=== PATIENT | female | born 1965 | race Caucasian/White ===

== ENCOUNTER → 2017-05-08 | Outpatient (CLI) | payer MEDICARE ==
[2015-04-01 17:12] VITALS: BP 105/64
[~2017-05-08] MED LIST: AMIT10TA PO; ASPI-482 PO; BACL10TA PO; CHLO1CAP PO; CLON1TAB3 PO; DICL75TA PO; DICY20TA3 PO; ESTR1TAB15 PO; LEVO100T5 PO; MECL25TA3 PO; OXYC-323 PO; PROP20TA PO; QUET300T6 PO; RANI150T2 PO; SIMV20TA3 PO; SITA1TAB11 PO; TIZA4TAB PO; TOPI25TA7 PO
--- NOTE | 2017-05-08 15:01 | RAD ---
DATE: 05/08/2017 EXAM: DIGITAL DIAGNOSTIC BILATERAL HISTORY: 6 month follow-up of asymmetry COMPARISON: 10/04/2016, 05/27/2016 05/02/2016 The breast parenchyma shows scattered fibroglandular densities. Breast parenchyma level B. FINDINGS: The fibroglandular densities in the breasts are unchanged. Again noted is a mild asymmetry at the 9:00 location in the right breast. This is unchanged since multiple previous studies. No new or enlarging breast densities are seen. There is a breast biopsy marker in the lateral aspect of the right breast. Scattered benign type calcifications are present. No suspicious microcalcifications have developed. IMPRESSION: Stable right breast asymmetry as described above. Follow-up right mammograms in 6 months and bilateral mammography at one year is suggested BI-RADS CATEGORY: 3 PROBABLY BENIGN FINDING(S)-SHORT INTERVAL FOLLOW-UP SUGGESTED RECOMMENDED FOLLOW-UP: 6M 6 MONTH FOLLOW-UP PQRS compliance statement: Patient information was entered into a reminder system with a target due date for the next mammogram. Mammography is a sensitive method for finding small breast cancers, but it does not detect them all and is not a substitute for careful clinical examination. A negative mammogram does not negate a clinically suspicious finding and should not result in delay in biopsying a clinically suspicious abnormality. "Our facility is accredited by the [employer] Mammography Program."
== END | disposition home or self-care (01) ==
LOC: KCIC MAMMO 14:10
PROVIDERS: ATTEND Family Medicine
DX: R92.8 Other abnormal and inconclusive findings on diagnostic imaging of breast (principal)
CPT/HCPCS: G0204; 77066

== ENCOUNTER → 2017-11-17 | Outpatient (CLI) | payer MEDICARE | END | disposition home or self-care (01) | LOC: KCIC MAMMO 12:50 | DX: R92.8 Other abnormal and inconclusive findings on diagnostic imaging of breast (principal); N64.89 Other specified disorders of breast (principal) | CPT/HCPCS: 77065; G0279 ==

== ENCOUNTER → 2018-04-21 | Outpatient (CLI) | payer MEDICARE ==
[2018-04-21 13:58] LABS: ISTAT CREATININE 0.7 mg/dL (0.6-1.1)
[2018-04-21] MEDS: IOHEXOL 240 MG/ML 50ML VIAL. PO (14:27)
[2018-04-21] MEDS: IOHEXOL 300 MG/ML 100ML VIAL. IV (14:27)
== END | disposition home or self-care (01) ==
LOC: KCIC CT 12:24
DX: A08.8 Other specified intestinal infections (principal); E03.9 Hypothyroidism, unspecified; R10.13 Epigastric pain
CPT/HCPCS: 74177; 82565; Q9966; Q9967

== ENCOUNTER → 2018-05-26 | Outpatient (CLI) | payer MEDICARE | END | disposition home or self-care (01) | LOC: KCIC MAMMO 12:40 | DX: Z12.31 Encounter for screening mammogram for malignant neoplasm of breast (principal); E03.9 Hypothyroidism, unspecified; Z90.710 Acquired absence of both cervix and uterus | CPT/HCPCS: 77063; 77067 ==

== ENCOUNTER → 2018-06-01 | Outpatient (CLI) | payer MEDICARE | END | disposition home or self-care (01) | LOC: KCIC 11:58 | DX: M47.896 Other spondylosis, lumbar region (principal); M48.54XD Collapsed vertebra, not elsewhere classified, thoracic region, subsequent encounter for fracture with routine healing; E03.9 Hypothyroidism, unspecified; Z90.710 Acquired absence of both cervix and uterus | CPT/HCPCS: 72100 ==

== ENCOUNTER → 2019-07-15 | Day surgery (SDC) | payer MEDICARE ==
[~2019-07-15] MED LIST changes: +CANA300T PO; -CLON1TAB3 PO; +CLONAZEPAM1 MG PO; +FLUT9.9S NS; +GLIM2TAB3 PO; +INSU3INS SQ; +IRON1TAB2 PO; +IV RINGERS,LACTATED 1000ML 1,000 ML IV SCH; +LACT1CAP29 PO; +METF10007 PO; +OMEP40CA45 PO; -OXYC-323 PO; +OXYC1TAB15 PO; +PROPOFOL 20 ML IV ONE; -QUET300T6 PO; +QUET300T7 PO; +SIMV20TA18 PO; -SIMV20TA3 PO; -TIZA4TAB PO; +TIZA4TAB2 PO; +VORT20TA PO
--- NOTE | 2019-07-15 11:25 | PREOP HP ---
DATE OF SERVICE: 07/15/2019 DATE OF PROCEDURE: 07/15/2019 REQUESTING PHYSICIAN: Nhung Alberto MD PRIMARY CARE PHYSICIAN: Nhung Alberto MD REASON FOR PROCEDURE: Anemia and nausea. 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 She is to undergo upper endoscopy with APC. ALLERGIES: PENICILLIN AND SULFA WELL LATEX AND ADHESIVE TAPE. PAST MEDICAL HISTORY: 1. Gallbladder problems. 2. Hypercholesterolemia. 3. Hypothyroidism. 4. COPD. 5. Anxiety. 6. Depression. 7. Colon polyps. 8. Anemia. FAMILY MEDICAL HISTORY: Significant for ovarian cancer and esophageal and stomach cancer, but no colorectal cancer. SOCIAL HISTORY: She drinks 7 alcoholic beverages a week. She denies tobacco or IV drug abuse. She is a former smoker. MEDICATIONS: MAR was reviewed. REVIEW OF SYSTEMS: A 13-point review of systems was done. It is positive as per HPI and otherwise negative. PHYSICAL EXAMINATION: VITAL SIGNS: She is afebrile and her vital signs are stable. GENERAL: She is a well-developed, well-nourished female, in no apparent distress. HEENT: Oropharynx is clear. CARDIOVASCULAR: S1, S2. LUNGS: Clear. ABDOMEN: Normoactive bowel sounds, soft, nontender, nondistended. EXTREMITIES: No edema. NEUROLOGIC: Awake, alert and oriented x 3. ASSESSMENT AND PLAN: 1. Anemia. 2. History of gastric antral vascular ectasia. The risks and benefits of the procedure including bleeding, perforation, non-diagnosis and sedation were explained and she has agreed to proceed. JOSHUA PAIGE MD DR: LILLIE/franck JOB#: [id number] / [id number]
[2019-07-15 11:30] VITALS: BP 111/59
--- NOTE | 2019-07-16 15:07 | PATHOLOGY ---
[facility] Accession Number: [id number] . 01 Material submitted: . PART A: small bowel - SMALL BOWEL BIOPSY PART B: stomach - GASTRIC ANTRUM BIOPSY PART C: esophagus - DISTAL ESOPHAGUS BIOPSY. Modifiers: distal . 01 Clinical history: . Gastric antral vascular ectasia . 02 Diagnosis: A. Small bowel, biopsy: - No pathologic diagnosis. . B. Stomach, antrum, biopsy: - Mild chronic inflammation, nonspecific. - No evidence of Helicobacter pylori on immunoperoxidase stain. . C. Esophagus, distal, biopsy: - Tiny fragment of gastric-type columnar epithelium with mild chronic inflammation and focal intestinal metaplasia, findings compatible with Perkins's esophagus. - No evidence of dysplasia. - No squamous epithelium present. . ([facility]:mm; 07/16/2019) [facility] 07/16/2019 1049 Local . 02 Electronically signed: . Cas Cotton MD, Pathologist NPI- [id number] . 01 Gross description: . A. The specimen is received in formalin, labeled "Alexander, Delmy, small bowel BX", are three irregular fragments of sheets soft tissue measuring 0.5 x 0.5 x 0.2 cm in aggregate. Entirely submitted in A1. . B. The specimen is received in formalin, labeled "Alexander, Delmy, gastric antrum", are four irregular fragments of sheets soft tissue measuring 0.6 x 0.4 x 0.2 cm in aggregate. Entirely submitted in B1. . C. The specimen is received in formalin, labeled "Alexander, Delmy, distal esophagus BX", is an irregular of sheets soft tissue measuring 0.4 cm in greatest dimension. Entirely submitted in C1. ([facility]; 07/15/2019) [facility] 07/15/2019 2100 Local . 02 Pathologist provided ICD-10: K29.50, K20.9, K22.70 . 02 CPT . 818619, 468961, 494698, [id number] Specimen Comment: A courtesy copy of this report has been sent to Specimen Comment: [phone], . Specimen Comment: Report sent to / DR SALVADOR Performed at: 01 [facility] [address], [place] [id number] MD John Tan MD Phone: [phone] Performed at: 02 [facility] [address] [place], [place] [id number] MD Kendall Nowak MD Phone: [phone]
== END ==
LOC: ENDOS 10:02
PROVIDERS: ATTEND Internal Medicine Gastroenterology
DX: K21.0 Gastro-esophageal reflux disease with esophagitis (principal); K29.50 Unspecified chronic gastritis without bleeding; E78.00 Pure hypercholesterolemia, unspecified; E03.9 Hypothyroidism, unspecified; F41.9 Anxiety disorder, unspecified; F32.9 Major depressive disorder, single episode, unspecified; J44.9 Chronic obstructive pulmonary disease, unspecified; Z86.010 Personal history of colon polyps; Z72.89 Other problems related to lifestyle; Z87.891 Personal history of nicotine dependence
CPT/HCPCS: 43239; 88305; 88342; J2704; 43235